=== PATIENT | male | born 1955 | race Caucasian/White ===

== ENCOUNTER 2018-07-01 06:30 | Day surgery (SDC) | payer MEDICARE ==
--- NOTE | 2018-06-24 21:01 | HP ---
CC: Dr. Diallo; Ana Clark NP* ADMISSION HISTORY AND PHYSICAL: DATE OF ADMISSION: 07/01/18 ATTENDING SURGEON: Dr. Braulio Obrien* (dictated by JESSICA Morgan). CHIEF COMPLAINT: Right inguinal hernia. HISTORY OF PRESENT ILLNESS: This is a 62-year-old male with history of Crohn's disease, COPD, hypertension, and coronary artery disease, who first noted the development of a right groin bulge about 5 years ago. He was scheduled for repair of a right inguinal hernia 2 years ago, but this was deferred because of an episode of sepsis related to pneumonia. Since that time, the hernia has continued to increase in size and has become more symptomatic. He will notice occasional pain or discomfort requiring rest and manual reduction generally related to more strenuous activities. He has been followed by Dr. Obrien. He underwent a CT scan of the abdomen and pelvis on 04/09/18, which showed a midline incisional hernia with multiple fat-containing defects. In addition, there were noted calcified gallstones. The right inguinal hernia was not demonstrated on that particular study. He was seen most recently by Dr. Obrien on 04/17/18, at which time exam confirmed the presence of a well- healed upper midline incision with small fascial defect several fingerbreadths above the umbilicus, which was nontender and reducible. The right groin was notable for a moderate-sized reducible and mildly tender right inguinal hernia. Dr. Obrien has reviewed with him the indications for surgery and the consideration that the inguinal hernia is possibly more likely to cause future health problems. The patient understands the indications, risks, benefits, and alternatives and would like to proceed as scheduled with open repair of right inguinal hernia with mesh. PAST MEDICAL HISTORY: Crohn's disease (status post at least 3 laparotomies in the past including multiple bowel resections and subsequent episodes of small bowel obstruction treated conservatively, the most recent about 5 years ago), hypertension, coronary artery disease ([place] in 1999), COPD, GERD. PAST SURGICAL HISTORY: Previous surgeries include multiple laparotomies all via midline incision including multiple small bowel resections and splenectomy, open left inguinal herniorrhaphy. CURRENT MEDICATIONS: 1. Mercaptopurine 50 mg b.i.d. 2. Aspirin 81 mg once daily (he will continue perioperatively). 3. Anoro 62.5/25 mcg 1 puff once daily. 4. Budesonide extended release 3 mg 3 tablets once daily (for Crohn's). 5. Atenolol 25 mg once daily. 6. Effexor XR 37.5 mg once daily. 7. Omeprazole 40 mg once daily. 8. Vitamin B12 1000 mcg intramuscular every month. 9. Rosuvastatin 10 mg q. day. 10. Lisinopril 20 mg q. day. DRUG ALLERGIES: ATORVASTATIN (leg swelling), CLARITHROMYCIN (GI side effects). FAMILY HISTORY: Negative for anesthesia problems, bleeding, or clotting disorders. SOCIAL HISTORY: The patient lives alone. He is earlier this year, his having had pancreatic cancer. He is retired from prior [employer] work. He is currently a smoker of 1-1/2 packs per day for 40 plus years. He has undergone screening CT scans of the chest. He is encouraged to quit smoking. He denies use of alcohol or other recreational drugs. REVIEW OF SYSTEMS: General: No recent constitutional symptoms or acute illnesses other than specified in the HPI and past medical history. Cardiovascular: As above. See also attached Cardiology note with recent stress test. Respiratory: No recent exacerbations of his COPD. GI: As above per HPI. His usual baseline pattern is frequent loose stools related to his Crohn's disease. The patient is scheduled to have routine colonoscopy done, his last study being 2 years ago. : No problems reported. Endocrine: No diabetes, though he has had some mildly elevated blood sugars presumably related to the budesonide. He had a recent A1c but he does not recall a specific number other than that it was only mildly elevated and did not warrant further treatment or intervention. No history of thyroid dysfunction. Neuropsych: He has a history of depression related to the passing of his and her illness. He is tapering down on his Effexor. Hematological/Oncological : He has apparent B12 deficiency and is currently receiving B12 injections. His lab work indicates a mild macrocytic anemia. PHYSICAL EXAMINATION GENERAL: Somewhat thin, but otherwise well-appearing male, in no acute distress. VITAL SIGNS: Height 73 inches, weight 148 pounds. Blood pressure 126/70, pulse 60, respirations 18. HEENT: Pupils equal and round, reactive. EOMs intact. No conjunctival pallor. Oropharynx: He is edentulous. No intraoral lesions noted. NECK: No lymphadenopathy in the cervical or supraclavicular regions. No thyromegaly or masses. LUNGS: Clear to auscultation. No rales or wheezes. HEART: Regular rate and rhythm. No murmur appreciated. ABDOMEN: Well-healed midline incision with the 2 hernia areas (midline and right inguinal) as noted by Dr. Obrien as well as left groin scar from prior inguinal herniorrhaphy. No palpable masses or organomegaly. GENITALIA: Not done. RECTAL: Not done. BACK: No spinous process or CVA tenderness. EXTREMITIES: No edema. NEUROLOGICAL: Grossly intact. SKIN: Warm and dry. No suspicious rashes or lesions noted. IMPRESSION: Right inguinal hernia. PLAN: Open repair right inguinal hernia. JESSICA MORGAN [id number]/[facility] #: [id number] [facility]ITALPeggy
[~2018-07-01 06:30] MED LIST: Buffered Lidocaine 0.9% SYRIN* 5 ML/SYR SYRINGE INTRADERM ONE; Dexamethasone IV* 4 MG/ML 1 ML (4 MG) IV SLOW PU ONE; Famotidine IV* 10 MG/ML 2 ML (20 mg) IV ONE
[2018-07-01] MEDS ORDERED: Famotidine IV* 10 MG/ML 2 ML (20 mg) ONE (06:54)
[2018-07-01] MEDS ORDERED: Dexamethasone IV* 4 MG/ML 1 ML (4 MG) ONE (06:54)
[2018-07-01] MEDS ORDERED: ceFAZolin 2 GM PREMIX (*) 2 GM/50 ML BAG IVPB ONE (06:55)
[2018-07-01] MEDS ORDERED: Lidocain 1% EPI 1:100,000 * 30 ML MDV ONE (07:02)
[2018-07-01] MEDS ORDERED: Bupivacaine 0.25% W/EPI* 10 ML SDV ONE (07:02)
[2018-07-01] MEDS ORDERED: fentaNYL* 50 MCG/ML 2 ML VIAL (100 MCG VIAL) ONE (07:22)
[2018-07-01] MEDS ORDERED: Midazolam* 1 MG/ML 2 ML VIAL (2 MG) ONE (07:22)
[2018-07-01] MEDS ORDERED: Lidocaine 1% INJ* 10 MG/ML 30 ML SDV ONE (07:57)
[2018-07-01] MEDS ORDERED: Propofol* 10 MG/ML 20 ML BTL IV PUSH ONE (08:22)
[2018-07-01] MEDS ORDERED: Naloxone* 0.4 MG/ML 1 ML VIAL IV PRN (08:41)
[2018-07-01] MEDS ORDERED: Ondansetron INJ* 2 MG/ML VIAL IV PRN (08:41)
[2018-07-01] MEDS ORDERED: fentaNYL* 50 MCG/ML 2 ML VIAL (100 MCG VIAL) IV PRN (08:41)
[2018-07-01] MEDS ORDERED: oxyCODONE/Acetamin 5/325 MG* TAB PO PRN (09:13)
[2018-07-01 09:58] VITALS: BP 142/79
--- NOTE | 2018-07-02 00:41 | OP ---
DATE OF OPERATION: 07/01/18 - [facility] DATE OF : 55 SURGEON: Braulio Obrien M.D. DIRECTOR TRADING: JESSICA Dodd ANESTHESIOLOGIST: Dr. Lucas ANESTHESIA: Local with monitored anesthesia care. PRE-OP DIAGNOSIS: Right inguinal hernia. POST-OP DIAGNOSIS: Right direct inguinal hernia. OPERATIVE PROCEDURE: Open repair with Covidien ProGrip mesh of right direct inguinal hernia. ESTIMATED BLOOD LOSS: Minimal. WOUND CLASSIFICATION: I. COMPLICATIONS: None. DRAINS: None. SPECIMENS: None. DESCRIPTION OF PROCEDURE: Written informed consent was obtained, the right groin was marked with indelible ink and preoperative antibiotics were administered. The patient was taken to the operating room and placed in a supine position. Sequential compression devices and a warming blanket were applied. The right lower abdomen and groin were prepped and draped in the usual sterile fashion. Time-out verification was completed. 0.25% Marcaine mixed with 1% lidocaine with epinephrine, was infiltrated in the right groin, and an oblique incision was made several fingerbreadths above the inguinal crease carried down through Reynaldo fascia and the external oblique aponeurosis was identified and opened in the direction of its fibers. The spermatic cord was encircled with one quarter-inch Nick drain at the pubic tubercle and this was retracted above the wound to expose the inguinal floor. Careful dissection revealed a small direct inguinal hernia with a defect in the transversalis fascia. Careful evaluation of the cord structures revealed no evidence of an indirect hernia and the internal ring appeared to be of normal and expected caliber. The ProGrip precut Covidien mesh was placed and sutured to the pubic tubercle with a 0 Vicryl suture. This was adhered to the conjoint tendon superiorly, the inguinal ligament inferiorly, the musculature laterally with the ProGrip body line finisher. Hemostasis was assured. Additional Marcaine was infiltrated. The external oblique aponeurosis was closed with a running 3-0 Vicryl suture. The Reynaldo fascia was closed with interrupted 3-0 Vicryl suture. The skin was approximated with a subcuticular 4-0 Vicryl suture. Steri-Strips and sterile dressings were applied. The patient tolerated the procedure well and was taken to the recovery room in stable condition. [id number]/[facility] #: [id number] [facility]
== END 2018-07-01 10:00 | disposition home or self-care (01) ==
LOC: OR 06:30
PROVIDERS: ATTEND Surgery
DX: K40.90 Unilateral inguinal hernia, without obstruction or gangrene, not specified as recurrent (principal); K50.90 Crohn's disease, unspecified, without complications; I25.10 Atherosclerotic heart disease of native coronary artery without angina pectoris; I25.2 Old myocardial infarction; J44.9 Chronic obstructive pulmonary disease, unspecified; K21.9 Gastro-esophageal reflux disease without esophagitis; I10 Essential (primary) hypertension; F32.9 Major depressive disorder, single episode, unspecified; Z98.890 Other specified postprocedural states
CPT/HCPCS: C1781; J0690; J1100; J2250; J2704; J3010

== ENCOUNTER 2023-08-01 11:33 | Inpatient (IN) ==
[2023-08-01] MEDS ORDERED: NS 0.9% 1000 ml BAG 1,000 ML IV SCH (12:00)
[2023-08-01] MEDS ORDERED: Piperacillin/Tazobac 3.375 BAG 3.375 GM/100 ML BAG IV ONE (12:01)
[2023-08-01] MEDS ORDERED: Zosyn per Pharmacy NOTE FOLLOW UP SCH (13:00)
[2023-08-01 13:22] LABS: ABS Lymphocytes 0.7 10^3/uL (1.0-4.8); ABS Monocytes 0.3 10^3/uL (0.0-1.1); ABS Neutrophils 3.6 10^3/uL (1.5-7.6); ABS Nucleated RBC 0.01 10^3/ul; Eosinophil % 0.4 %; Hemoglobin 7.1 g/dL (13.2-16.3); Mean Corpuscular Hemoglobin 41.4 pg (27-33); Mean Corpuscular Hgb Conc 35.5 g/dL (31-36); Mean Corpuscular Volume 116.6 fL (80-97); Mean Platelet Volume 9.7 fL (7.5-11.2); Nucleated Red Blood Cells % 0.3 /100 WBC (0.0-0.4); Platelet Count 294 10^3/uL (150-450); Red Blood Count 1.72 10^6/uL (4.06-5.63); Red Cell Distribution Width 23.6 % (12-17); White Blood Count 4.7 10^3/uL (3.6-10.2)
[2023-08-01] MEDS ORDERED: Albuterol HFA INHALER 8 gm MDI INH PRN (14:04)
[2023-08-01 15:00] LABS: Potassium 4.6 mmol/L (3.5-5.0); Total Bilirubin 1.3 mg/dL (0.2-1.0)
[2023-08-01 15:01] LABS: Albumin 2.4 g/dL (3.2-5.2); Calcium 7.7 mg/dL (8.6-10.3); Magnesium 1.5 mg/dL (1.9-2.7)
[2023-08-01 15:04] LABS: Albumin/Globulin Ratio 0.9 (1-3); Creatinine, Serum 0.91 mg/dL (0.67-1.17); Globulin 2.8 g/dL (2-4); Total Protein 5.2 g/dL (6.4-8.9); eGFR CKD-EPI 92.4 (>60)
[2023-08-01] MEDS ORDERED: Magnesium Sulfate 2 gm BAG 2 GM/50 ML BAG IVPB ONE (16:24)
[2023-08-01] MEDS ORDERED: Iohexol 350 (CONTRAST) 500 ML MDV IV ONE (16:47)
[2023-08-01] MEDS ORDERED: Enoxaparin 40 MG/0.4 ML SYR SUBCUT SCH (18:00)
[2023-08-01 19:34] LABS: Hepatitis B Surface Antigen Nonreactive (Nonreactive)
[2023-08-01 19:38] LABS: Hepatitis B Core IgM Nonreactive (Nonreactive)
[2023-08-01 19:50] LABS: Hepatitis B Surface Ab Immune (Immune); Hepatitis C Antibody Negative (Negative)
[2023-08-01] MEDS: CMCS:Ranolazine 500 mg TAB ER (NF) PO SCH (20:10)
[2023-08-01] MEDS ORDERED: ZOSYN 3.375 GM x ONE DOSE over 30 miuntes IV (22:00)
[2023-08-02] MEDS: ZOSYN 3.375 GM Q8H per EXTENDED INFUSION IV SCH ×3 (06:13→21:10)
[2023-08-02 06:19] LABS: ABS Lymphocytes 0.6 10^3/uL (1.0-4.8); ABS Monocytes 0.4 10^3/uL (0.0-1.1); ABS Neutrophils 3.9 10^3/uL (1.5-7.6); ABS Nucleated RBC 0.01 10^3/ul; Hematocrit 19.9 % (38-53); Hemoglobin 6.8 g/dL (13.2-16.3); Lymphocyte % 11.8 %; Mean Corpuscular Hemoglobin 40.3 pg (27-33); Mean Corpuscular Hgb Conc 34.2 g/dL (31-36); Mean Corpuscular Volume 117.6 fL (80-97); Mean Platelet Volume 9.8 fL (7.5-11.2); Nucleated Red Blood Cells % 0.2 /100 WBC (0.0-0.4); Platelet Count 275 10^3/uL (150-450); Red Blood Count 1.69 10^6/uL (4.06-5.63); Red Cell Distribution Width 23.8 % (12-17); White Blood Count 4.9 10^3/uL (3.6-10.2)
[2023-08-02 06:54] LABS: Albumin 2.2 g/dL (3.2-5.2); Albumin/Globulin Ratio 0.8 (1-3); Calcium 7.2 mg/dL (8.6-10.3); Creatinine, Serum 0.89 mg/dL (0.67-1.17); Globulin 2.6 g/dL (2-4); Magnesium 2.1 mg/dL (1.9-2.7); Potassium 4.7 mmol/L (3.5-5.0); Total Bilirubin 1.2 mg/dL (0.2-1.0); Total Protein 4.8 g/dL (6.4-8.9); eGFR CKD-EPI 93.9 (>60)
[2023-08-02 09:10] LABS: Urine Appearance Clear; Urine Bilirubin Negative (Negative); Urine Blood Negative (Negative); Urine Color Amber; Urine Glucose Negative (Negative); Urine Ketones Negative (Negative); Urine Nitrite Negative (Negative); Urine Protein Negative (Negative); Urine Specific Gravity 1.039 (1.002-1.030); Urine Urobilinogen Negative (Negative)
[2023-08-02] MEDS: Aspirin EC 81 mg TAB.EC (enteric coated) PO SCH (09:16)
[2023-08-02] MEDS: Venlafaxine XR 75 mg PO SCH (09:16)
[2023-08-02] MEDS: CMCS:Ranolazine 500 mg TAB ER (NF) PO SCH ×2 (09:16→21:10)
[2023-08-02] MEDS ORDERED: NS 0.9% 500 ml BAG 500 ML IV SCH (10:00)
[2023-08-02] MEDS: NS 0.9% 1000 ml BAG 1,000 ML IV SCH (16:20)
[2023-08-02] MEDS: Enoxaparin 60 MG/0.6 ML SYR SUBCUT SCH (21:10)
[2023-08-03] MEDS: NS 0.9% 1000 ml BAG 1,000 ML IV SCH ×3 (00:32→16:56)
[2023-08-03] MEDS: ZOSYN 3.375 GM Q8H per EXTENDED INFUSION IV SCH (04:04)
[2023-08-03 06:33] LABS: Hematocrit 21.7 % (38-53); Hemoglobin 7.8 g/dL (13.2-16.3); Mean Corpuscular Hgb Conc 36.2 g/dL (31-36); Mean Corpuscular Volume 102.4 fL (80-97); Mean Platelet Volume 9.7 fL (7.5-11.2); Platelet Count 277 10^3/uL (150-450); Red Blood Count 2.12 10^6/uL (4.06-5.63); Red Cell Distribution Width 27.6 % (12-17); White Blood Count 6.4 10^3/uL (3.6-10.2)
[2023-08-03 06:46] LABS: ABS Lymphocytes 0.7 10^3/uL (1.0-4.8); ABS Monocytes 0.4 10^3/uL (0.0-1.1); ABS Neutrophils 5.3 10^3/uL (1.5-7.6); ABS Nucleated RBC 0.03 10^3/ul; Lymphocyte % 11.3 %; Nucleated Red Blood Cells % 0.5 /100 WBC (0.0-0.4)
[2023-08-03 07:01] LABS: ALT 16 U/L (7-52); AST 22 U/L (13-39); Albumin/Globulin Ratio 0.8 (1-3); Alkaline Phosphatase 76 U/L (35-149); Anion Gap 7 mmol/L (2-16); Blood Urea Nitrogen 28 mg/dL (6-24); CO2 Carbon Dioxide 19 mmol/L (22-32); Calcium 7.1 mg/dL (8.6-10.3); Chloride 106 mmol/L (101-111); Creatinine, Serum 0.83 mg/dL (0.67-1.17); Globulin 2.4 g/dL (2-4); Glucose 141 mg/dL (70-100); Phosphorus 2.7 mg/dL (2.5-5.0); Potassium 4.6 mmol/L (3.5-5.0); Sodium 132 mmol/L (135-145); Total Protein 4.4 g/dL (6.4-8.9); Uric Acid < 1.7 mg/dL (4.4-7.6); eGFR CKD-EPI 95.9 (>60)
[2023-08-03] MEDS: Venlafaxine XR 75 mg PO SCH (08:41)
[2023-08-03] MEDS: Aspirin EC 81 mg TAB.EC (enteric coated) PO SCH (08:42)
[2023-08-03] MEDS: Enoxaparin 60 MG/0.6 ML SYR SUBCUT SCH ×2 (08:42→21:18)
[2023-08-03] MEDS: CMCS:Ranolazine 500 mg TAB ER (NF) PO SCH ×2 (09:30→21:18)
[2023-08-03] MEDS ORDERED: PALONOSETRON HCL 0.05 MG/ML (0.25 MG) SYRINGE (0.05 MG/ML) IV ONE (13:00)
[2023-08-03] MEDS ORDERED: Famotidine IV 10 MG/ML 2 ml VIAL (20 mg) IV ONE (13:00)
[2023-08-03] MEDS ORDERED: Albuterol 2.5mg/3 ml (0.083%) NEB.SOLN INH PRN (13:01)
[2023-08-03] MEDS ORDERED: EPINEPHrine Anaphylaxis SYR CERTADOSE SYR KIT IM PRN (13:03)
[2023-08-03] MEDS ORDERED: methylPREDNISolone SOD SUCC 125 mg 2 ML VIAL IV PRN (13:04)
[2023-08-03] MEDS ORDERED: Famotidine IV 10 MG/ML 2 ml VIAL (20 mg) IV PRN (13:04)
[2023-08-03] MEDS ORDERED: Meperidine 50 mg/ml SYRINGE 1 ml IV PRN (13:05)
[2023-08-03] MEDS ORDERED: riTUXimab-ABBS 500 MG, riTUXimab-ABBS 200 MG in NS 0.9% 500 ml BAG 280 ML IVPB ONE (13:30)
[2023-08-03] MEDS ORDERED: CYCLOPHOSPHAMIDE IVPB ONE (17:30)
[2023-08-03] MEDS ORDERED: NS 0.9% IVPB ONE (17:30)
[2023-08-03] MEDS ORDERED: vinCRIStine 2 MG in NS 0.9% 50 ML 50 ML IVPB ONE (18:00)
[2023-08-03] MEDS ORDERED: DOXORUBICIN IVPB ONE (18:30)
[2023-08-04] MEDS: NS 0.9% 1000 ml BAG 1,000 ML IV SCH ×3 (01:01→17:18)
[2023-08-04 06:23] LABS: Potassium 4.4 mmol/L (3.5-5.0); Sodium 137 mmol/L (135-145)
[2023-08-04 06:24] LABS: ALT 19 U/L (7-52); AST 24 U/L (13-39); Albumin/Globulin Ratio 0.9 (1-3); Alkaline Phosphatase 68 U/L (35-149); Anion Gap 6 mmol/L (2-16); Blood Urea Nitrogen 20 mg/dL (6-24); CO2 Carbon Dioxide 20 mmol/L (22-32); Calcium 6.6 mg/dL (8.6-10.3); Chloride 111 mmol/L (101-111); Creatinine, Serum 0.63 mg/dL (0.67-1.17); Globulin 2.2 g/dL (2-4); Glucose 108 mg/dL (70-100); Phosphorus 1.6 mg/dL (2.5-5.0); Total Protein 4.2 g/dL (6.4-8.9); Uric Acid < 1.7 mg/dL (4.4-7.6); eGFR CKD-EPI 104.3 (>60)
[2023-08-04 06:25] LABS: Hematocrit 21.7 % (38-53); Hemoglobin 7.7 g/dL (13.2-16.3); Mean Corpuscular Hemoglobin 36.8 pg (27-33); Mean Corpuscular Hgb Conc 35.5 g/dL (31-36); Mean Corpuscular Volume 103.9 fL (80-97); Mean Platelet Volume 9.8 fL (7.5-11.2); Platelet Count 303 10^3/uL (150-450); Red Blood Count 2.09 10^6/uL (4.06-5.63); Red Cell Distribution Width 27.9 % (12-17); White Blood Count 4.9 10^3/uL (3.6-10.2)
[2023-08-04 08:08] LABS: ABS Lymphocytes 0.6 10^3/uL (1.0-4.8); ABS Monocytes 0.3 10^3/uL (0.0-1.1); ABS Nucleated RBC 0.05 10^3/ul; Eosinophil % 0.1 %; Lymphocyte % 13.2 %; Macrocytosis 3+
[2023-08-04 08:09] LABS: Schistocytes 1+; Target Cells 1+
[2023-08-04] MEDS: Venlafaxine XR 75 mg PO SCH (09:00)
[2023-08-04] MEDS: CMCS:Ranolazine 500 mg TAB ER (NF) PO SCH ×2 (09:01→21:46)
[2023-08-04] MEDS: Aspirin EC 81 mg TAB.EC (enteric coated) PO SCH (09:01)
[2023-08-04] MEDS: Enoxaparin 60 MG/0.6 ML SYR SUBCUT SCH (09:04)
[2023-08-05 07:31] LABS: Hemoglobin 7.9 g/dL (13.2-16.3); Mean Corpuscular Hemoglobin 37.3 pg (27-33); Mean Corpuscular Hgb Conc 35.8 g/dL (31-36); Mean Platelet Volume 9.3 fL (7.5-11.2); Platelet Count 317 10^3/uL (150-450); Red Blood Count 2.11 10^6/uL (4.06-5.63); Red Cell Distribution Width 26.9 % (12-17); White Blood Count 7.8 10^3/uL (3.6-10.2)
[2023-08-05 08:03] LABS: ALT 27 U/L (7-52); AST 33 U/L (13-39); Albumin 2.1 g/dL (3.2-5.2); Albumin/Globulin Ratio 0.9 (1-3); Alkaline Phosphatase 80 U/L (35-149); Anion Gap 5 mmol/L (2-16); Blood Urea Nitrogen 18 mg/dL (6-24); CO2 Carbon Dioxide 20 mmol/L (22-32); Calcium 7.1 mg/dL (8.6-10.3); Chloride 110 mmol/L (101-111); Creatinine, Serum 0.59 mg/dL (0.67-1.17); Globulin 2.3 g/dL (2-4); Glucose 93 mg/dL (70-100); Phosphorus 1.6 mg/dL (2.5-5.0); Potassium 4.5 mmol/L (3.5-5.0); Sodium 135 mmol/L (135-145); Total Protein 4.4 g/dL (6.4-8.9); Uric Acid < 1.7 mg/dL (4.4-7.6); eGFR CKD-EPI 106.3 (>60)
[2023-08-05 08:08] LABS: Anisocytosis 2+; Macrocytosis 2+; Target Cells 1+
[2023-08-05 08:09] LABS: ABS Lymphocytes 0.9 10^3/uL (1.0-4.8); ABS Monocytes 0.2 10^3/uL (0.0-1.1); ABS Neutrophils 6.7 10^3/uL (1.5-7.6); ABS Nucleated RBC 0.03 10^3/ul; Lymphocyte % 11.2 %; Nucleated Red Blood Cells % 0.4 /100 WBC (0.0-0.4)
[2023-08-05] MEDS: CMCS:Ranolazine 500 mg TAB ER (NF) PO SCH (08:55)
[2023-08-05] MEDS: Venlafaxine XR 75 mg PO SCH (08:57)
[2023-08-05] MEDS: Aspirin EC 81 mg TAB.EC (enteric coated) PO SCH (09:13)
[2023-08-05 10:20] VITALS: BP 118/71
== END 2023-08-05 11:40 | disposition home or self-care (01) | DRG 846 ==
LOC: CHOA 11:33 → SSU 16:09
PROVIDERS: ADMIT Internal Medicine Medical Oncology; ATTEND Internal Medicine Medical Oncology

== ENCOUNTER 2023-08-09 11:37 | Inpatient (IN) ==
[2023-08-09 14:38] LABS: Albumin 2.5 g/dL (3.2-5.2); CO2 Carbon Dioxide 24 mmol/L (22-32); Calcium 7.6 mg/dL (8.6-10.3); Chloride 103 mmol/L (101-111); Hematocrit 22.1 % (38-53); Hemoglobin 7.8 g/dL (13.2-16.3); Mean Corpuscular Hemoglobin 36.6 pg (27-33); Mean Corpuscular Hgb Conc 35.4 g/dL (31-36); Mean Corpuscular Volume 103.5 fL (80-97); Mean Platelet Volume 10.6 fL (7.5-11.2); Platelet Count 115 10^3/uL (150-450); Red Blood Count 2.14 10^6/uL (4.06-5.63); Red Cell Distribution Width 24.6 % (12-17); Sodium 133 mmol/L (135-145); White Blood Count 0.4 10^3/uL (3.6-10.2)
[2023-08-09 14:42] LABS: ALT 84 U/L (7-52); Albumin/Globulin Ratio 0.9 (1-3); Alkaline Phosphatase 122 U/L (35-149); Blood Urea Nitrogen 11 mg/dL (6-24); Creatinine, Serum 0.55 mg/dL (0.67-1.17); Globulin 2.8 g/dL (2-4); Glucose 93 mg/dL (70-100); Total Protein 5.3 g/dL (6.4-8.9); eGFR CKD-EPI 108.6 (>60)
[2023-08-09 14:48] LABS: High Sens Troponin Baseline 2299 pg/mL (<20)
[2023-08-09 15:01] LABS: Anion Gap 6 mmol/L (2-16)
[2023-08-09 15:07] LABS: Macrocytosis 1+
[2023-08-09 15:11] LABS: Anisocytosis 3+
[2023-08-09 15:12] LABS: Tear Drop Cells 1+
[2023-08-09 15:13] LABS: ABS Lymphocytes 0.4 10^3/uL (1.0-4.8); Nucleated Red Blood Cells % 0.8 /100 WBC (0.0-0.4)
[2023-08-09] MEDS ORDERED: Iohexol 350 (CONTRAST) 500 ML MDV IV ONE (15:24)
[2023-08-09] MEDS ORDERED: Senna TAB 8.6 mg TAB PO PRN (16:52)
[2023-08-09] MEDS ORDERED: Polyethylene Glycol 3350 17 GM PACKET PO PRN (16:52)
[2023-08-09] MEDS ORDERED: Ondansetron 4 mg VIAL 2 MG/ML 2 ml VIAL IV PRN (16:52)
[2023-08-09] MEDS ORDERED: Albuterol HFA INHALER 8 gm MDI INH PRN (16:55)
[2023-08-09] MEDS ORDERED: Enoxaparin 80 MG/0.8 ML SYR SUBCUT ONE ×3 (17:14→19:13)
[2023-08-09 19:07] LABS: High Sensitivity Troponin 1 Hr 2172 pg/mL (<20)
[2023-08-09] MEDS ORDERED: Triamcinolone 0.5% OINT 1 TUBE TOPICAL PRN (21:00)
[2023-08-09 21:24] LABS: Potassium Redraw 4.1 mmol/L (3.5-5.0)
[2023-08-09] MEDS: CMCS: Ranolazine 500 mg TAB ER (NF) PO SCH (22:49)
[2023-08-09 23:24] LABS: High Sensitivity Troponin 3 Hr 1804 pg/mL (<20)
[2023-08-10] MEDS ORDERED: Lidocaine 1% VIAL 10 MG/ML 30 ML VIAL ONE (03:13)
[2023-08-10 03:26] LABS: PCO2 Arterial 41 mmHg (35-45)
[2023-08-10 03:30] LABS: PO2 Arterial < 38 mmHg (80-100)
[2023-08-10 06:15] LABS: Hematocrit 21.5 % (38-53); Hemoglobin 7.4 g/dL (13.2-16.3); Mean Corpuscular Hemoglobin 36.8 pg (27-33); Mean Corpuscular Hgb Conc 34.5 g/dL (31-36); Mean Corpuscular Volume 106.6 fL (80-97); Mean Platelet Volume 9.8 fL (7.5-11.2); Platelet Count 78 10^3/uL (150-450); Red Blood Count 2.02 10^6/uL (4.06-5.63); Red Cell Distribution Width 25.2 % (12-17)
[2023-08-10 06:35] LABS: Calcium 7.6 mg/dL (8.6-10.3); Creatinine, Serum 0.57 mg/dL (0.67-1.17); Magnesium 1.5 mg/dL (1.9-2.7); Potassium 4.3 mmol/L (3.5-5.0); eGFR CKD-EPI 107.5 (>60)
[2023-08-10 08:40] LABS: ABS Lymphocytes 0.3 10^3/uL (1.0-4.8); Eosinophil % 5.6 %; Lymphocyte % 85.6 %; Nucleated Red Blood Cells % 0.6 /100 WBC (0.0-0.4); White Blood Count 0.3 10^3/uL (3.6-10.2)
[2023-08-10] MEDS: CMCS: Ranolazine 500 mg TAB ER (NF) PO SCH ×2 (08:57→21:12)
[2023-08-10] MEDS: Venlafaxine XR 75 mg PO SCH (08:57)
[2023-08-10] MEDS ORDERED: Aspirin EC 81 mg TAB.EC (enteric coated) PO SCH (09:00)
[2023-08-10] MEDS: Enoxaparin 80 MG/0.8 ML SYR SUBCUT SCH ×2 (12:12→21:14)
[2023-08-10] MEDS ORDERED: Magnesium Sulfate IV 3 GM in NS 0.9% 100 ml BAG 100 ML IVPB ONE (17:43)
[2023-08-11 07:31] LABS: Calcium 7.2 mg/dL (8.6-10.3); Creatinine, Serum 0.47 mg/dL (0.67-1.17); Magnesium 1.7 mg/dL (1.9-2.7); Potassium 3.9 mmol/L (3.5-5.0); eGFR CKD-EPI 113.9 (>60)
[2023-08-11 08:32] LABS: ABS Lymphocytes 0.3 10^3/uL (1.0-4.8); ABS Monocytes 0.1 10^3/uL (0.0-1.1); Hematocrit 19.3 % (38-53); Hemoglobin 6.9 g/dL (13.2-16.3); Lymphocyte % 78.8 %; Mean Corpuscular Hemoglobin 36.9 pg (27-33); Mean Corpuscular Hgb Conc 35.7 g/dL (31-36); Mean Corpuscular Volume 103.4 fL (80-97); Mean Platelet Volume 10.3 fL (7.5-11.2); Nucleated Red Blood Cells % 0.2 /100 WBC (0.0-0.4); Platelet Count 48 10^3/uL (150-450); Red Blood Count 1.86 10^6/uL (4.06-5.63); Red Cell Distribution Width 24.6 % (12-17); White Blood Count 0.4 10^3/uL (3.6-10.2)
[2023-08-11] MEDS ORDERED: Furosemide 40 mg/4 ml IV VIAL IV ONE (08:49)
[2023-08-11] MEDS: Venlafaxine XR 75 mg PO SCH (09:44)
[2023-08-11] MEDS: CMCS: Ranolazine 500 mg TAB ER (NF) PO SCH (09:48)
[2023-08-11] MEDS: Enoxaparin 80 MG/0.8 ML SYR SUBCUT SCH ×2 (09:51→23:17)
[2023-08-11] MEDS ORDERED: Magnesium Sulfate IV 3 GM in NS 0.9% 100 ml BAG 100 ML IVPB ONE (09:59)
[2023-08-12 07:16] LABS: Calcium 7.3 mg/dL (8.6-10.3); Creatinine, Serum 0.46 mg/dL (0.67-1.17); Magnesium 1.7 mg/dL (1.9-2.7); Potassium 3.5 mmol/L (3.5-5.0); eGFR CKD-EPI 114.6 (>60)
[2023-08-12 07:45] LABS: Hematocrit 24.5 % (38-53); Mean Corpuscular Hgb Conc 36.9 g/dL (31-36); Mean Corpuscular Volume 97.4 fL (80-97); Mean Platelet Volume 10.4 fL (7.5-11.2); Platelet Count 39 10^3/uL (150-450); Red Blood Count 2.51 10^6/uL (4.06-5.63); Red Cell Distribution Width 22.1 % (12-17); White Blood Count 0.8 10^3/uL (3.6-10.2)
[2023-08-12 07:47] LABS: ABS Lymphocytes 0.4 10^3/uL (1.0-4.8); ABS Monocytes 0.2 10^3/uL (0.0-1.1); ABS Nucleated RBC 0.01 10^3/ul; Eosinophil % 2.6 %; Lymphocyte % 53.3 %; Nucleated Red Blood Cells % 1.5 /100 WBC (0.0-0.4)
[2023-08-12 07:50] LABS: ABS Neutrophils 0.1 10^3/uL (1.5-7.6)
[2023-08-12] MEDS ORDERED: Furosemide 20 mg/2 ml IV VIAL IV ONE (08:03)
[2023-08-12] MEDS ORDERED: Magnesium Sulfate IV 3 GM in NS 0.9% 100 ml BAG 100 ML IVPB ONE (08:05)
[2023-08-12] MEDS: Enoxaparin 80 MG/0.8 ML SYR SUBCUT SCH (08:58)
[2023-08-12] MEDS: Venlafaxine XR 75 mg PO SCH (09:01)
[2023-08-13 07:15] LABS: ABS Lymphocytes 0.5 10^3/uL (1.0-4.8); ABS Monocytes 0.6 10^3/uL (0.0-1.1); ABS Neutrophils 0.9 10^3/uL (1.5-7.6); ABS Nucleated RBC 0.02 10^3/ul; Eosinophil % 1.6 %; Hematocrit 26.6 % (38-53); Hemoglobin 9.5 g/dL (13.2-16.3); Lymphocyte % 25.4 %; Mean Corpuscular Hemoglobin 35.3 pg (27-33); Mean Corpuscular Hgb Conc 35.7 g/dL (31-36); Mean Corpuscular Volume 99.1 fL (80-97); Mean Platelet Volume 10.6 fL (7.5-11.2); Nucleated Red Blood Cells % 0.8 /100 WBC (0.0-0.4); Platelet Count 52 10^3/uL (150-450); Red Blood Count 2.68 10^6/uL (4.06-5.63)
[2023-08-13 07:48] LABS: Calcium 7.6 mg/dL (8.6-10.3); Creatinine, Serum 0.51 mg/dL (0.67-1.17); Magnesium 1.8 mg/dL (1.9-2.7); Potassium 3.8 mmol/L (3.5-5.0); eGFR CKD-EPI 111.1 (>60)
[2023-08-13] MEDS: Venlafaxine XR 75 mg PO SCH (08:31)
[2023-08-13] MEDS ORDERED: Enoxaparin 80 MG/0.8 ML SYR SUBCUT SCH ×2 (10:32→11:00)
[2023-08-13] MEDS ORDERED: Enoxaparin 80 MG/0.8 ML SYR SUBCUT ONE (18:00)
[2023-08-14 05:27] LABS: INR 1.35 (0.83-1.13)
[2023-08-14 05:30] LABS: Hematocrit 24.2 % (38-53); Hemoglobin 8.8 g/dL (13.2-16.3); Mean Corpuscular Hemoglobin 35.9 pg (27-33); Mean Corpuscular Hgb Conc 36.2 g/dL (31-36); Mean Corpuscular Volume 99.2 fL (80-97); Mean Platelet Volume 11.2 fL (7.5-11.2); Platelet Count 85 10^3/uL (150-450); Red Blood Count 2.44 10^6/uL (4.06-5.63); Red Cell Distribution Width 21.9 % (12-17); White Blood Count 4.8 10^3/uL (3.6-10.2)
[2023-08-14 05:41] LABS: Calcium 7.5 mg/dL (8.6-10.3); Creatinine, Serum 0.51 mg/dL (0.67-1.17); Magnesium 1.5 mg/dL (1.9-2.7); Potassium 3.5 mmol/L (3.5-5.0); eGFR CKD-EPI 111.1 (>60)
[2023-08-14 07:22] LABS: ABS Basophils 0.1 10^3/uL (0.0-0.1); ABS Lymphocytes 0.8 10^3/uL (1.0-4.8); ABS Monocytes 1.1 10^3/uL (0.0-1.1); ABS Neutrophils 2.9 10^3/uL (1.5-7.6); ABS Nucleated RBC 0.03 10^3/ul; Eosinophil % 0.9 %; Lymphocyte % 16.3 %; Nucleated Red Blood Cells % 0.6 /100 WBC (0.0-0.4)
[2023-08-14 07:28] LABS: RBC Morphology Normal (Normal)
[2023-08-14] MEDS ORDERED: Magnesium Sulfate IV 3 GM in NS 0.9% 100 ml BAG 100 ML IVPB ONE (08:00)
[2023-08-14] MEDS ORDERED: fentaNYL 100 mcg/2 ml 50 MCG/ML VIAL ONE (08:11)
[2023-08-14] MEDS ORDERED: Midazolam 2 mg/2 ml VIAL 1 mg/ml 2 ml VIAL (2 mg) ONE (08:11)
[2023-08-14] MEDS ORDERED: Midazolam 10 mg/10 ml VIAL 1 mg/ml 10 ml VIAL (10 mg) IV SLOW PU ONE (08:47)
[2023-08-14] MEDS ORDERED: fentaNYL 100 mcg/2 ml 50 MCG/ML VIAL IV SLOW PU ONE (08:47)
[2023-08-14] MEDS ORDERED: Naloxone 0.4 mg VIAL 0.4 mg/ml 1 ml VIAL IV PUSH PRN (08:47)
[2023-08-14] MEDS ORDERED: Flumazenil 0.5 mg/5 ml 0.1 MG/ML 5 ml VIAL IV PRN (08:47)
[2023-08-14] MEDS ORDERED: ceFAZolin 1 GM ADVAN 1 GM ADDV.VIAL IVPB ONE (08:59)
[2023-08-14] MEDS: Venlafaxine XR 75 mg PO SCH (11:29)
[2023-08-14 14:30] VITALS: BP 97/51
[2023-08-14] MEDS ORDERED: Enoxaparin 80 MG/0.8 ML SYR SUBCUT SCH (21:00)
== END 2023-08-14 17:37 | disposition home or self-care (01) | DRG 189 ==
LOC: ED 11:37 → SUATTDRO 16:52 → EDHOLD 16:52 → MEDTELE 08-10 15:19
PROVIDERS: ADMIT Internal Medicine; ATTEND Internal Medicine

== ENCOUNTER 2023-11-23 19:58 | Inpatient (IN) ==
[2023-11-23 22:02] LABS: Hematocrit 33.5 % (38-53); Hemoglobin 11.1 g/dL (13.2-16.3); Mean Corpuscular Hemoglobin 37.7 pg (27-33); Mean Platelet Volume 8.3 fL (7.5-11.2); Platelet Count 161 10^3/uL (150-450); Red Blood Count 2.93 10^6/uL (4.06-5.63); Red Cell Distribution Width 16.1 % (12-17); White Blood Count 33.7 10^3/uL (3.6-10.2)
[2023-11-23 22:20] LABS: ALT 22 U/L (7-52); Albumin 3.6 g/dL (3.2-5.2); Albumin/Globulin Ratio 1.8 (1-3); Alkaline Phosphatase 122 U/L (35-149); Anion Gap 10 mmol/L (2-16); Blood Urea Nitrogen 21 mg/dL (6-24); C Reactive Protein 8.95 mg/L (<8.01); CO2 Carbon Dioxide 20 mmol/L (22-32); Calcium 8.3 mg/dL (8.6-10.3); Chloride 108 mmol/L (101-111); Creatinine, Serum 0.84 mg/dL (0.67-1.17); Glucose 125 mg/dL (70-100); Sodium 138 mmol/L (135-145); Total Bilirubin 0.3 mg/dL (0.2-1.0); Total Protein 5.6 g/dL (6.4-8.9)
[2023-11-23 23:14] LABS: ABS Basophils 0.1 10^3/uL (0.0-0.1); ABS Lymphocytes 0.6 10^3/uL (1.0-4.8); ABS Monocytes 3.1 10^3/uL (0.0-1.1); ABS Neutrophils 29.9 10^3/uL (1.5-7.6); ABS Nucleated RBC 0.02 10^3/ul; Lymphocyte % 1.9 %; Nucleated Red Blood Cells % 0.1 %/100WBC (0.0-0.8)
[2023-11-23] MEDS ORDERED: Remdesivir 100 mg Vial 200 MG in NS 0.9% 250 ml 210 ML IV ONE (23:30)
[2023-11-23] MEDS ORDERED: Albuterol HFA INHALER 8 gm MDI INH PRN (23:42)
[2023-11-24 00:06] LABS: Erythrocyte Sed Rate 8 mm/Hr (0-19)
[2023-11-24] MEDS ORDERED: Ranolazine 500 mg TAB ER (NF) PO SCH (03:30)
[2023-11-24 03:34] LABS: INR 1.49 (0.83-1.13)
[2023-11-24 03:45] LABS: Potassium Redraw 3.5 mmol/L (3.5-5.0)
[2023-11-24 05:21] LABS: INR 1.41 (0.83-1.13)
[2023-11-24 05:29] LABS: Albumin 3.5 g/dL (3.2-5.2); Albumin/Globulin Ratio 1.7 (1-3); Calcium 8.5 mg/dL (8.6-10.3); Creatinine, Serum 0.68 mg/dL (0.67-1.17); Globulin 2.1 g/dL (2-4); Potassium 3.5 mmol/L (3.5-5.0); Total Bilirubin 0.4 mg/dL (0.2-1.0); Total Protein 5.6 g/dL (6.4-8.9); eGFR CKD-EPI 101.2 (>60)
[2023-11-24 07:15] LABS: Hematocrit 33.6 % (38-53); Hemoglobin 11.3 g/dL (13.2-16.3); Mean Corpuscular Hemoglobin 38.2 pg (27-33); Mean Corpuscular Hgb Conc 33.5 g/dL (31-36); Mean Platelet Volume 8.5 fL (7.5-11.2); Platelet Count 115 10^3/uL (150-450); Red Blood Count 2.95 10^6/uL (4.06-5.63); Red Cell Distribution Width 16.1 % (12-17); White Blood Count 27.8 10^3/uL (3.6-10.2)
[2023-11-24] MEDS ORDERED: Potassium EFFERVES 25 meq TAB PO ONE (07:41)
[2023-11-24 08:15] LABS: ABS Lymphocytes 0.8 10^3/uL (1.0-4.8); ABS Monocytes 2.8 10^3/uL (0.0-1.1); ABS Neutrophils 24.1 10^3/uL (1.5-7.6)
[2023-11-24] MEDS: Aspirin EC 81 mg TAB.EC (enteric coated) PO SCH (09:31)
[2023-11-24] MEDS: CMCS: Ranolazine 500 mg TAB ER (NF) PO SCH ×2 (09:31→21:45)
[2023-11-24] MEDS: Venlafaxine XR 75 mg PO SCH (09:31)
[2023-11-24] MEDS ORDERED: Lactated Ringers 1000 ml BAG 1,000 ML IV ONE (13:37)
[2023-11-24] MEDS: Remdesivir 100 mg Vial 100 MG in NS 0.9% 250 ml 230 ML IV SCH (21:44)
[2023-11-25 06:27] LABS: INR 1.32 (0.83-1.13)
[2023-11-25 06:33] LABS: Albumin 3.2 g/dL (3.2-5.2); Albumin/Globulin Ratio 1.6 (1-3); Calcium 8.5 mg/dL (8.6-10.3); Creatinine, Serum 0.58 mg/dL (0.67-1.17); Potassium 3.5 mmol/L (3.5-5.0); Total Bilirubin 0.5 mg/dL (0.2-1.0); Total Protein 5.2 g/dL (6.4-8.9); eGFR CKD-EPI 106.2 (>60)
[2023-11-25 06:45] LABS: Hematocrit 31.1 % (38-53); Hemoglobin 10.5 g/dL (13.2-16.3); Mean Corpuscular Hemoglobin 38.4 pg (27-33); Mean Corpuscular Hgb Conc 33.9 g/dL (31-36); Mean Corpuscular Volume 113.2 fL (80-97); Red Blood Count 2.74 10^6/uL (4.06-5.63); White Blood Count 15.8 10^3/uL (3.6-10.2)
[2023-11-25] MEDS ORDERED: Potassium EFFERVES 25 meq TAB PO ONE (07:32)
[2023-11-25 08:58] LABS: ABS Basophils 0.3 10^3/uL (0.0-0.1); ABS Lymphocytes 0.6 10^3/uL (1.0-4.8); ABS Monocytes 1.1 10^3/uL (0.0-1.1); ABS Neutrophils 13.8 10^3/uL (1.5-7.6); ABS Nucleated RBC 0.01 10^3/ul; Mean Platelet Volume 9.4 fL (7.5-11.2); Platelet Count 65 10^3/uL (150-450); RBC Morphology Normal (Normal)
[2023-11-25] MEDS: CMCS: Ranolazine 500 mg TAB ER (NF) PO SCH ×2 (09:13→21:35)
[2023-11-25] MEDS: Aspirin EC 81 mg TAB.EC (enteric coated) PO SCH (09:14)
[2023-11-25] MEDS: Venlafaxine XR 75 mg PO SCH (09:15)
[2023-11-25] MEDS ORDERED: Senna TAB 8.6 mg TAB PO PRN (11:49)
[2023-11-25] MEDS ORDERED: Polyethylene Glycol 3350 17 GM PACKET PO PRN (11:49)
[2023-11-25] MEDS: Remdesivir 100 mg Vial 100 MG in NS 0.9% 250 ml 230 ML IV SCH (21:36)
[2023-11-26 06:43] LABS: Hematocrit 33.5 % (38-53); Hemoglobin 11.4 g/dL (13.2-16.3); Mean Corpuscular Hemoglobin 38.6 pg (27-33); Mean Corpuscular Hgb Conc 34.2 g/dL (31-36); Mean Corpuscular Volume 112.9 fL (80-97); Mean Platelet Volume 9.8 fL (7.5-11.2); Platelet Count 61 10^3/uL (150-450); Red Blood Count 2.96 10^6/uL (4.06-5.63); Red Cell Distribution Width 15.7 % (12-17); White Blood Count 6.1 10^3/uL (3.6-10.2)
[2023-11-26 06:55] LABS: INR 1.2 (0.83-1.13)
[2023-11-26 07:15] LABS: ABS Lymphocytes 0.8 10^3/uL (1.0-4.8); ABS Monocytes 0.4 10^3/uL (0.0-1.1); ABS Neutrophils 4.9 10^3/uL (1.5-7.6); ABS Nucleated RBC 0.01 10^3/ul; Nucleated Red Blood Cells % 0.1 %/100WBC (0.0-0.8)
[2023-11-26 07:38] LABS: Albumin 3.5 g/dL (3.2-5.2); Albumin/Globulin Ratio 1.7 (1-3); Calcium 8.9 mg/dL (8.6-10.3); Creatinine, Serum 0.61 mg/dL (0.67-1.17); Globulin 2.1 g/dL (2-4); Potassium 3.9 mmol/L (3.5-5.0); Total Bilirubin 0.4 mg/dL (0.2-1.0); Total Protein 5.6 g/dL (6.4-8.9); eGFR CKD-EPI 104.6 (>60)
[2023-11-26] MEDS ORDERED: Sulfamethox/Trimethoprim DS TAB 800/160 mg PO SCH (09:00)
[2023-11-26] MEDS: CMCS: Ranolazine 500 mg TAB ER (NF) PO SCH (10:55)
[2023-11-26] MEDS: Venlafaxine XR 75 mg PO SCH (10:57)
[2023-11-26] MEDS: Aspirin EC 81 mg TAB.EC (enteric coated) PO SCH (10:57)
[2023-11-26 14:32] VITALS: BP 122/70
[2023-11-26] MEDS ORDERED: Remdesivir 100 mg Vial 100 MG in NS 0.9% 250 ml 230 ML IV SCH (15:00)
== END 2023-11-26 15:15 | disposition home or self-care (01) | DRG 871 ==
LOC: ED 19:58 → EDHOLD 19:58 → SUATTDRO 22:37 → MED 11-24 03:00
PROVIDERS: ADMIT Student in an Organized Health Care Education/Training Program; ATTEND Hospitalist

== ENCOUNTER 2024-08-15 20:10 | Inpatient (IN) ==
[2024-08-15 21:33] LABS: Albumin/Globulin Ratio 1.4 (1-3); C Reactive Protein 30.97 mg/L (<8.01); Calcium 8.3 mg/dL (8.6-10.3); Creatinine, Serum 1.01 mg/dL (0.67-1.17); Globulin 2.1 g/dL (2-4); Potassium 3.7 mmol/L (3.5-5.0); Total Bilirubin 0.4 mg/dL (0.2-1.0); Total Protein 5.1 g/dL (6.4-8.9)
[2024-08-15 21:34] LABS: Activated Partial Thrombo Time 29.2 seconds (26.0-38.0); INR 1.63 (0.85-1.14)
[2024-08-15 21:52] LABS: Hematocrit 33.6 % (38-53); Hemoglobin 11.9 g/dL (13.2-16.3); Mean Corpuscular Hemoglobin 35.2 pg (27-33); Mean Corpuscular Hgb Conc 35.3 g/dL (31-36); Mean Corpuscular Volume 99.5 fL (80-97); Mean Platelet Volume 7.9 fL (7.5-11.2); Platelet Count 358 10^3/uL (150-450); Red Blood Count 3.38 10^6/uL (4.06-5.63); Red Cell Distribution Width 15.2 % (12-17); White Blood Count 10.2 10^3/uL (3.6-10.2)
[2024-08-15 22:05] LABS: High Sensitivity Troponin 1 Hr 34 pg/mL (<20)
[2024-08-15] MEDS: Iohexol 350 (CONTRAST) 500 ML MDV IV ONE (22:09)
[2024-08-15 22:31] LABS: ABS Lymphocytes 1.1 10^3/uL (1.0-4.8); ABS Monocytes 0.6 10^3/uL (0.0-1.1); ABS Neutrophils 8.4 10^3/uL (1.5-7.6); ABS Nucleated RBC 0.29 10^3/ul; Anisocytosis 1+; Eosinophil % 0.1 %; Lymphocyte % 10.4 %; Nucleated Red Blood Cells % 2.8 %/100WBC (0.0-0.8); Polychromasia 1+
[2024-08-16] MEDS: cefTRIAXone 1 gm/50 mL D5W 1 GM/50 ML BAG IV ONE (00:13)
[2024-08-16 01:25] LABS: Urine Appearance Clear; Urine Bilirubin Negative (Negative); Urine Blood Negative (Negative); Urine Color Yellow; Urine Glucose 1+ (>=70 mg/dL) (Negative); Urine Ketones Negative (Negative); Urine Nitrite Negative (Negative); Urine Protein Trace (Negative); Urine Specific Gravity >1.050 (1.002-1.030); Urine Urobilinogen Negative (Negative); Urine pH 6.5 (5.0-8.0)
[2024-08-16 02:52] LABS: Magnesium 1.3 mg/dL (1.9-2.7); Phosphorus 2.6 mg/dL (2.5-5.0)
[2024-08-16] MEDS ORDERED: Benzocaine/Menthol LOZ PO PRN (03:11)
[2024-08-16] MEDS: Potassium Chlor 20 meq TAB.ER PO ONE (04:49)
[2024-08-16] MEDS: Magnesium Sulf 4 GM/100 ML IV 4,000 MG/100 ML BAG IVPB ONE (04:49)
[2024-08-16] MEDS: Potassium Chlor 10 meq TAB PO ONE (04:49)
[2024-08-16] MEDS: Azithromycin 500 mg/250 ml NS 500 MG/250 ML BAG IVPB SCH (04:54)
[2024-08-16 04:56] LABS: Osmolality Serum 273 mOsm/kg (275-295)
[2024-08-16 05:08] LABS: Urine Osmo 629 mOsm/kg (150-1150)
[2024-08-16 05:59] LABS: Anion Gap 8 mmol/L (2-16); Blood Urea Nitrogen 21 mg/dL (6-24); CO2 Carbon Dioxide 26 mmol/L (22-32); Calcium 8.1 mg/dL (8.6-10.3); Chloride 96 mmol/L (101-111); Glucose 159 mg/dL (70-100); Sodium 130 mmol/L (135-145)
[2024-08-16 06:13] LABS: ABS Lymphocytes 0.8 10^3/uL (1.0-4.8); ABS Monocytes 0.3 10^3/uL (0.0-1.1); ABS Neutrophils 7.1 10^3/uL (1.5-7.6); ABS Nucleated RBC 0.18 10^3/ul; Eosinophil % 0.2 %; Hematocrit 34.6 % (38-53); Hemoglobin 11.8 g/dL (13.2-16.3); Lymphocyte % 9.5 %; Mean Corpuscular Hemoglobin 33.7 pg (27-33); Mean Corpuscular Hgb Conc 34.1 g/dL (31-36); Mean Platelet Volume 8.3 fL (7.5-11.2); Nucleated Red Blood Cells % 2.2 %/100WBC (0.0-0.8); Platelet Count 352 10^3/uL (150-450); Red Blood Count 3.49 10^6/uL (4.06-5.63); Red Cell Distribution Width 15.3 % (12-17); White Blood Count 8.3 10^3/uL (3.6-10.2)
[2024-08-16] MEDS: Venlafaxine XR 75 mg PO SCH (09:07)
[2024-08-16] MEDS: Aspirin EC 81 mg TAB.EC (enteric coated) PO SCH (09:07)
[2024-08-16] MEDS: CMCS: Ranolazine 500 mg TAB ER (NF) PO SCH (09:07)
[2024-08-16] MEDS: Nystatin SUSPENSION 100,000 UNITS/ML UDC PO SCH (11:30)
[2024-08-16] MEDS: NS 0.9% 1000 ml BAG 1,000 ML IV ONE (14:11)
[2024-08-16] MEDS: Cyanocobalamin INJ 1,000 MCG/ML VIAL 1 ML VIAL IM ONE (17:05)
[2024-08-16] MEDS: cefTRIAXone 1 gm/50 mL D5W 1 GM/50 ML BAG IV SCH (23:54)
[2024-08-17] MEDS ORDERED: cefTRIAXone 1 gm/50 mL D5W 1 GM/50 ML BAG IV SCH
[2024-08-17 03:33] LABS: Hematocrit 28.6 % (38-53); Hemoglobin 9.9 g/dL (13.2-16.3); Mean Corpuscular Hemoglobin 34.3 pg (27-33); Mean Corpuscular Hgb Conc 34.6 g/dL (31-36); Mean Corpuscular Volume 98.9 fL (80-97); Mean Platelet Volume 7.9 fL (7.5-11.2); Platelet Count 313 10^3/uL (150-450); Red Blood Count 2.89 10^6/uL (4.06-5.63); Red Cell Distribution Width 15.1 % (12-17); White Blood Count 8.2 10^3/uL (3.6-10.2)
[2024-08-17 03:40] LABS: Calcium 7.7 mg/dL (8.6-10.3); Creatinine, Serum 0.9 mg/dL (0.67-1.17); Magnesium 1.8 mg/dL (1.9-2.7); Phosphorus 3.1 mg/dL (2.5-5.0); Potassium 3.9 mmol/L (3.5-5.0)
[2024-08-17] MEDS: Azithromycin 500 mg/250 ml NS 500 MG/250 ML BAG IVPB SCH (04:00)
[2024-08-17 04:13] LABS: ABS Lymphocytes 0.7 10^3/uL (1.0-4.8); ABS Monocytes 0.3 10^3/uL (0.0-1.1); ABS Neutrophils 7.2 10^3/uL (1.5-7.6); ABS Nucleated RBC 0.12 10^3/ul; Anisocytosis 1+; Nucleated Red Blood Cells % 1.4 %/100WBC (0.0-0.8); Polychromasia 1+
[2024-08-18 05:08] LABS: Hematocrit 28.6 % (38-53); Hemoglobin 9.9 g/dL (13.2-16.3); Mean Corpuscular Hemoglobin 34.4 pg (27-33); Mean Corpuscular Hgb Conc 34.7 g/dL (31-36); Mean Corpuscular Volume 99.1 fL (80-97); Mean Platelet Volume 7.7 fL (7.5-11.2); Platelet Count 323 10^3/uL (150-450); Red Blood Count 2.89 10^6/uL (4.06-5.63); Red Cell Distribution Width 15.9 % (12-17)
[2024-08-18 05:12] LABS: Calcium 8.1 mg/dL (8.6-10.3); Creatinine, Serum 0.79 mg/dL (0.67-1.17); eGFR CKD-EPI 96.8 (>60)
[2024-08-18 05:31] LABS: ABS Basophils 0.1 10^3/uL (0.0-0.1); ABS Lymphocytes 0.6 10^3/uL (1.0-4.8); ABS Monocytes 0.2 10^3/uL (0.0-1.1); ABS Nucleated RBC 0.14 10^3/ul; Eosinophil % 0.1 %; Lymphocyte % 5.8 %; Nucleated Red Blood Cells % 1.3 %/100WBC (0.0-0.8)
[2024-08-18] MEDS: Acetaminophen IV 1 GM/100ML 1,000 MG/100 ML BAG IV PRN (07:19)
[2024-08-18] MEDS ORDERED: Dextrose 50% Syringe 50 ml 25 GM/50 ML SYRINGE IV PUSH PRN (07:32)
[2024-08-18] MEDS: Acetaminophen IV 1 GM/100ML 1,000 MG/100 ML BAG IV ONE (07:34)
[2024-08-18] MEDS: Sulfamethox/Trimethoprim DS TAB 800/160 mg PO SCH ×2 (08:09→20:11)
[2024-08-18] MEDS: methylPREDNISolone SOD SUCC 40 mg/ml 1 ml VIAL IV SCH (08:10)
[2024-08-18] MEDS: Magic MouthWash2-BEN/MAAL/LIDO/NYST 240 ML BTL (alt formulation) SWISH SPIT SCH (13:04)
[2024-08-18] MEDS ORDERED: Magic MouthWash2-BEN/MAAL/LIDO/NYST 240 ML BTL (alt formulation) SWISH SPIT PRN (17:52)
[2024-08-18] MEDS: Magic MouthWash2-BEN/MAAL/LIDO/NYST 240 ML BTL (alt formulation) SWISH SWAL SCH (22:38)
[2024-08-19 05:50] LABS: ABS Lymphocytes 0.6 10^3/uL (1.0-4.8); ABS Monocytes 0.4 10^3/uL (0.0-1.1); ABS Neutrophils 10.4 10^3/uL (1.5-7.6); Hematocrit 27.5 % (38-53); Hemoglobin 9.5 g/dL (13.2-16.3); Mean Corpuscular Hemoglobin 34.2 pg (27-33); Mean Corpuscular Hgb Conc 34.4 g/dL (31-36); Mean Corpuscular Volume 99.6 fL (80-97); Mean Platelet Volume 7.8 fL (7.5-11.2); Nucleated Red Blood Cells % 0.9 %/100WBC (0.0-0.8); Platelet Count 341 10^3/uL (150-450); Red Blood Count 2.76 10^6/uL (4.06-5.63); Red Cell Distribution Width 15.4 % (12-17); White Blood Count 11.3 10^3/uL (3.6-10.2)
[2024-08-19 07:29] LABS: Calcium 8.1 mg/dL (8.6-10.3); Creatinine, Serum 0.78 mg/dL (0.67-1.17); Magnesium 1.5 mg/dL (1.9-2.7); Potassium 4.5 mmol/L (3.5-5.0); eGFR CKD-EPI 97.1 (>60)
[2024-08-19] MEDS: Magnesium Sulfate 2 gm BAG 2 GM/50 ML BAG IVPB ONE (09:45)
[2024-08-19] MEDS ORDERED: Dextrose 50% Syringe 50 ml 25 GM/50 ML SYRINGE IV PUSH PRN (13:27)
[2024-08-19] MEDS: Nystatin SUSPENSION 100,000 UNITS/ML UDC PO SCH (14:12)
[2024-08-19] MEDS: Triamcinolone 0.5% OINT 1 TUBE TOPICAL SCH (20:10)
[2024-08-19 23:08] LABS: Fungitell Qualitative Result Positive (Negative); Fungitell Quantitative Value >500 pg/mL (<60 pg/mL)
[2024-08-19 23:58] LABS: Adenovirus Undetected (Undetected); Bordetella parapertussis Undetected (Undetected); Bordetella pertussis Undetected (Undetected); Chlamydophila pneumoniae Undetected (Undetected); Coronavirus 229E Undetected (Undetected); Coronavirus HKU1 Undetected (Undetected); Coronavirus NL63 Undetected (Undetected); Coronavirus OC43 Undetected (Undetected); Human Metapneumovirus Undetected (Undetected); Human Rhinovirus/Enterovirus Undetected (Undetected); Influenza A Undetected (Undetected); Influenza B Undetected (Undetected); Mycoplasmoides pneumoniae Undetected (Undetected); Parainfluenza Virus 1 Undetected (Undetected); Parainfluenza Virus 2 Undetected (Undetected); Parainfluenza Virus 3 Undetected (Undetected); Parainfluenza Virus 4 Undetected (Undetected); Respiratory Syncytial Virus Undetected (Undetected); Specimen Source NASOPHARYNGEAL SWAB
[2024-08-20 05:57] LABS: Calcium 8.2 mg/dL (8.6-10.3); Creatinine, Serum 0.9 mg/dL (0.67-1.17); Magnesium 1.8 mg/dL (1.9-2.7); Potassium 4.7 mmol/L (3.5-5.0)
[2024-08-20] MEDS: Magnesium Sulfate 2 gm BAG 2 GM/50 ML BAG IVPB ONE (06:19)
[2024-08-20 07:29] LABS: ABS Lymphocytes 0.7 10^3/uL (1.0-4.8); ABS Monocytes 0.4 10^3/uL (0.0-1.1); ABS Neutrophils 13.6 10^3/uL (1.5-7.6); ABS Nucleated RBC 0.23 10^3/ul; Hematocrit 26.6 % (38-53); Hemoglobin 8.8 g/dL (13.2-16.3); Lymphocyte % 4.6 %; Mean Corpuscular Hemoglobin 33.2 pg (27-33); Mean Corpuscular Hgb Conc 33.1 g/dL (31-36); Mean Corpuscular Volume 100.5 fL (80-97); Mean Platelet Volume 8.2 fL (7.5-11.2); Nucleated Red Blood Cells % 1.5 %/100WBC (0.0-0.8); Platelet Count 368 10^3/uL (150-450); Red Blood Count 2.65 10^6/uL (4.06-5.63); Red Cell Distribution Width 15.5 % (12-17); White Blood Count 14.8 10^3/uL (3.6-10.2)
[2024-08-20 09:35] LABS: INR 1.13 (0.85-1.14)
[2024-08-20] MEDS: Remdesivir 100 mg Vial 200 MG in NS 0.9% 250 ml 210 ML IV ONE (09:42)
[2024-08-20 09:47] LABS: Albumin 2.7 g/dL (3.2-5.2); Albumin/Globulin Ratio 1.5 (1-3); Calcium 8.4 mg/dL (8.6-10.3); Creatinine, Serum 0.96 mg/dL (0.67-1.17); Globulin 1.8 g/dL (2-4); Potassium 4.7 mmol/L (3.5-5.0); Total Bilirubin 0.3 mg/dL (0.2-1.0); Total Protein 4.5 g/dL (6.4-8.9); eGFR CKD-EPI 86.1 (>60)
[2024-08-20] MEDS: Sulfamethox/Trimethoprim DS TAB 800/160 mg PO SCH (13:53)
[2024-08-21 04:43] LABS: INR 1.22 (0.85-1.14)
[2024-08-21 04:44] LABS: Albumin 2.7 g/dL (3.2-5.2); Albumin/Globulin Ratio 1.5 (1-3); Calcium 8.3 mg/dL (8.6-10.3); Creatinine, Serum 1.07 mg/dL (0.67-1.17); Globulin 1.8 g/dL (2-4); Potassium 5.1 mmol/L (3.5-5.0); Total Bilirubin 0.3 mg/dL (0.2-1.0); Total Protein 4.5 g/dL (6.4-8.9); eGFR CKD-EPI 75.6 (>60)
[2024-08-21 04:46] LABS: Hematocrit 27.6 % (38-53); Hemoglobin 9.2 g/dL (13.2-16.3); Mean Corpuscular Hemoglobin 33.3 pg (27-33); Mean Corpuscular Hgb Conc 33.3 g/dL (31-36); Mean Corpuscular Volume 99.9 fL (80-97); Platelet Count 388 10^3/uL (150-450); Red Blood Count 2.76 10^6/uL (4.06-5.63); Red Cell Distribution Width 15.8 % (12-17); White Blood Count 16.9 10^3/uL (3.6-10.2)
[2024-08-21 06:36] LABS: ABS Neutrophils 14.9 10^3/uL (1.5-7.6); ABS Nucleated RBC 0.56 10^3/ul; Anisocytosis 1+; Lymphocyte % 5.7 %; Nucleated Red Blood Cells % 3.3 %/100WBC (0.0-0.8)
[2024-08-21] MEDS: methylPREDNISolone SOD SUCC 40 mg/ml 1 ml VIAL IV SCH (08:49)
[2024-08-21] MEDS: Remdesivir 100 mg Vial 100 MG in NS 0.9% 250 ml 230 ML IV SCH (08:50)
[2024-08-22 04:52] LABS: INR 1.21 (0.85-1.14)
[2024-08-22 05:24] LABS: Albumin 2.9 g/dL (3.2-5.2); Albumin/Globulin Ratio 1.7 (1-3); Calcium 8.3 mg/dL (8.6-10.3); Creatinine, Serum 0.94 mg/dL (0.67-1.17); Globulin 1.7 g/dL (2-4); Magnesium 1.8 mg/dL (1.9-2.7); Potassium 4.9 mmol/L (3.5-5.0); Total Bilirubin 0.3 mg/dL (0.2-1.0); Total Protein 4.6 g/dL (6.4-8.9); eGFR CKD-EPI 88.3 (>60)
[2024-08-22 06:00] LABS: Hematocrit 28.3 % (38-53); Hemoglobin 9.8 g/dL (13.2-16.3); Mean Corpuscular Hemoglobin 34.3 pg (27-33); Mean Corpuscular Hgb Conc 34.5 g/dL (31-36); Mean Corpuscular Volume 99.6 fL (80-97); Mean Platelet Volume 7.9 fL (7.5-11.2); Platelet Count 389 10^3/uL (150-450); Red Blood Count 2.84 10^6/uL (4.06-5.63); White Blood Count 14.9 10^3/uL (3.6-10.2)
[2024-08-22 06:01] LABS: ABS Neutrophils 13.9 10^3/ul (1.5-7.6)
[2024-08-22 06:02] LABS: ABS Lymphocytes 0.6 10^3/ul (1.0-4.8); ABS Monocytes 0.4 10^3/ul (0.0-1.1); Anisocytosis 1+; Polychromasia 1+
[2024-08-22] MEDS: Magnesium Sulfate 2 gm BAG 2 GM/50 ML BAG IVPB ONE (08:38)
[2024-08-23 04:33] LABS: INR 1.24 (0.85-1.14)
[2024-08-23 05:22] LABS: Albumin/Globulin Ratio 1.9 (1-3); Calcium 8.5 mg/dL (8.6-10.3); Creatinine, Serum 1.05 mg/dL (0.67-1.17); Globulin 1.6 g/dL (2-4); Magnesium 1.7 mg/dL (1.9-2.7); Potassium 5.1 mmol/L (3.5-5.0); Total Bilirubin 0.4 mg/dL (0.2-1.0); Total Protein 4.6 g/dL (6.4-8.9); eGFR CKD-EPI 77.3 (>60)
[2024-08-23 07:03] LABS: Hematocrit 29.4 % (38-53); Mean Corpuscular Hemoglobin 34.4 pg (27-33); Mean Platelet Volume 8.1 fL (7.5-11.2); Platelet Count 384 10^3/uL (150-450); Red Blood Count 2.91 10^6/uL (4.06-5.63); Red Cell Distribution Width 16.2 % (12-17)
[2024-08-23 07:24] LABS: Lymphocyte % 6.3 %; Nucleated Red Blood Cells % 19.8 %/100WBC (0.0-0.8)
[2024-08-23 07:26] LABS: ABS Basophils 0.1 10^3/uL (0.0-0.1); ABS Monocytes 0.6 10^3/uL (0.0-1.1); ABS Neutrophils 14.5 10^3/uL (1.5-7.6); White Blood Count 16.2 10^3/uL (3.6-10.2)
[2024-08-23 07:27] LABS: Macrocytosis 1+; Polychromasia 1+
[2024-08-23] MEDS: methylPREDNISolone SOD SUCC 40 mg/ml 1 ml VIAL IV SCH (08:14)
[2024-08-23] MEDS ORDERED: methylPREDNISolone SOD SUCC 40 mg/ml 1 ml VIAL IV SCH (09:00)
[2024-08-24 04:37] LABS: INR 1.3 (0.85-1.14)
[2024-08-24 05:06] LABS: Albumin/Globulin Ratio 1.8 (1-3); Calcium 8.3 mg/dL (8.6-10.3); Creatinine, Serum 1.04 mg/dL (0.67-1.17); Globulin 1.7 g/dL (2-4); Magnesium 1.6 mg/dL (1.9-2.7); Potassium 4.7 mmol/L (3.5-5.0); Total Bilirubin 0.4 mg/dL (0.2-1.0); Total Protein 4.7 g/dL (6.4-8.9); eGFR CKD-EPI 78.2 (>60)
[2024-08-24 06:19] LABS: ABS Basophils 0.1 10^3/uL (0.0-0.1); ABS Lymphocytes 1.2 10^3/uL (1.0-4.8); ABS Monocytes 1.1 10^3/uL (0.0-1.1); ABS Nucleated RBC 3.88 10^3/ul; Eosinophil % 0.1 %; Hematocrit 29.6 % (38-53); Hemoglobin 9.8 g/dL (13.2-16.3); Mean Corpuscular Hemoglobin 33.3 pg (27-33); Mean Corpuscular Hgb Conc 33.1 g/dL (31-36); Mean Corpuscular Volume 100.6 fL (80-97); Mean Platelet Volume 7.6 fL (7.5-11.2); Platelet Count 390 10^3/uL (150-450); Red Blood Count 2.94 10^6/uL (4.06-5.63); Red Cell Distribution Width 15.9 % (12-17); White Blood Count 10.7 10^3/uL (3.6-10.2)
[2024-08-24 06:20] LABS: Macrocytosis 1+
[2024-08-24] MEDS: Magnesium Sulfate 2 gm BAG 2 GM/50 ML BAG IVPB ONE (07:52)
[2024-08-24] MEDS: Magnesium Sulfate IV 1GM/100ML 1 GM/100 ML BAG IV ONE (08:47)
[2024-08-24 11:28] VITALS: BP 124/80
== END 2024-08-24 11:05 | disposition home or self-care (01) | DRG 189 ==
LOC: EDHOLD 20:10 → ED 20:10 → SUATTDRO 08-16 09:45 → ICU 08-16 14:27
PROVIDERS: ADMIT Internal Medicine; ATTEND Student in an Organized Health Care Education/Training Program